=== PATIENT | male | born 1995 | race Caucasian/White ===

== ENCOUNTER → 2020-06-23 | Outpatient (CLI) | payer BC | LOC: COL.RAD 07:50 | DX: R19.7 Diarrhea, unspecified (principal); R11.2 Nausea with vomiting, unspecified; R14.2 Eructation ==

== ENCOUNTER → 2020-06-30 | Outpatient (CLI) | payer BC | LOC: COL.RAD 06:29 | DX: R19.7 Diarrhea, unspecified (principal); R11.2 Nausea with vomiting, unspecified; R14.2 Eructation | CPT/HCPCS: A9537; J2805 ==

== ENCOUNTER → 2020-08-18 | Outpatient (CLI) | payer BC | LOC: ZCOL.LAB 16:20 | DX: L05.01 Pilonidal cyst with abscess (principal) ==